=== PATIENT | male | born 1950 | race Caucasian/White ===

== ENCOUNTER → 2016-10-18 | Outpatient (REF) | payer OTHER ==
[2016-10-18 16:45] LABS: CALCIUM LEVEL 8.9 MG/DL (8.8-10.2); CREATININE FOR GFR 1.55 MG/DL (0.70-1.30); GLOMERULAR FILTRATION RATE 48.1 (>49); POTASSIUM SERUM 3.8 MEQ/L (3.5-5.1)
== END ==
LOC: M LABDRAW1 15:45
PROVIDERS: ATTEND Family Medicine
DX: I10 Essential (primary) hypertension (principal)

== ENCOUNTER → 2016-12-16 | Outpatient (REF) | payer OTHER | LOC: M LAB REF 12:05 | PROVIDERS: ATTEND Nurse Practitioner Family | DX: D51.9 Vitamin B12 deficiency anemia, unspecified (principal) ==

== ENCOUNTER 2017-11-18 08:39 | Day surgery (SDC) | payer OTHER ==
[2017-11-18] MEDS ORDERED: PROPOFOL 200 MG/20 ML VIAL As Ordered ×2 (09:52)
[2017-11-18] MEDS ORDERED: LIDOCAINE 2% INJ 100 MG/5 ML SDV (FOR ANES.) As Ordered (09:53)
== END 2017-11-18 10:59 | disposition home or self-care (01) ==
LOC: M OPP 08:39
DX: Z12.11 Encounter for screening for malignant neoplasm of colon (principal); K64.0 First degree hemorrhoids; K57.30 Diverticulosis of large intestine without perforation or abscess without bleeding; R12 Heartburn; K22.8 Other specified diseases of esophagus; K21.0 Gastro-esophageal reflux disease with esophagitis; K44.9 Diaphragmatic hernia without obstruction or gangrene; I10 Essential (primary) hypertension; E78.5 Hyperlipidemia, unspecified; F17.220 Nicotine dependence, chewing tobacco, uncomplicated; Z79.899 Other long term (current) drug therapy
CPT/HCPCS: G0121

== ENCOUNTER → 2020-01-22 | Outpatient (REF) | payer OTHER ==
[~2020-01-22] MED LIST: AMLO1TAB24 PO; PRAV20TA2 PO; TERA5CAP3 PO
== END ==
LOC: M LAB REF 16:11
PROVIDERS: ATTEND Nurse Practitioner Family
DX: D51.9 Vitamin B12 deficiency anemia, unspecified (principal)

== ENCOUNTER → 2020-10-02 | Outpatient (REF) | payer OTHER | LOC: M LAB REF 16:06 | PROVIDERS: ATTEND Internal Medicine | DX: E87.6 Hypokalemia (principal) ==

== ENCOUNTER 2020-11-19 11:58 | Emergency (ER) | payer MEDICARE, OTHER ==
[~2020-11-19] VITALS: Ht 182.9 cm; Wt 103.9 kg
[2020-11-19] MEDS ORDERED: OMEP-218 (12:12)
[2020-11-19] MEDS ORDERED: amLODIPine 5 MG TAB PO ONE (13:10)
--- NOTE | 2020-11-19 13:36 | REP ---
INDICATION: hx aneurysm c/o increased freq carter COMPARISON: 07/30/2012 TECHNIQUE: Axial noncontrast images from the skull base to the vertex with coronal reformations. This CT examination was performed using the following dose reduction techniques: Automated exposure control, adjustment of mA and/or kv according to the patient's size, and use of iterative reconstruction technique. FINDINGS: The ventricles, sulci, and cisterns are normal in position and appearance. Jung-white differentiation is maintained. No acute intracranial hemorrhage, mass/mass effect, pathology or trauma/injury. No evidence for acute infarction. No extra-axial fluid collection. Calvarium is intact. Paranasal sinuses and mastoid air cells are clear. IMPRESSION: Normal noncontrast head CT. No evidence for acute intracranial pathology or trauma/injury. <Electronically signed by Jose Lovelace > 11/19/20 [id number]
[2020-11-19] MEDS ORDERED: ISOVUE-370 76% 100ML VIAL As Ordered ONE (13:46)
--- NOTE | 2020-11-19 14:12 | REP ---
INDICATION: carter increased hx aneurysm. COMPARISON: None. TECHNIQUE: CT contrast dose: 100 ml of intravenous Isovue 370. Axial contrast-enhanced images were obtained from the skull base to the vertex with coronal reformations using 100 cc Isovue 370 intravenous contrast material. Maximal intensity projection and multiplanar re-formation images along with 3-D rendered imaging of the arterial vasculature. FINDINGS: The [id number] and visualized vertebrobasilar system appear relatively intact and normal although absence/hyperplasia of the right posterior communicating artery cannot be excluded. Vasculature to the bilateral hemispheres appear symmetric. No obvious arteriovenous malformation or aneurysm detected. Remainder of the examination appears essentially normal. No significant atherosclerotic changes noted. 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 Otherwise normal CT angiography through the [id number] and bilateral cerebral hemispheres. <Electronically signed by Jose Lovelace > 11/19/20 [id number]
[2020-11-19 14:47] VITALS: BP 144/88
== END 2020-11-19 14:52 | disposition home or self-care (01) ==
LOC: M ED 11:58
DX: R51.9 Headache, unspecified (principal); H93.13 Tinnitus, bilateral; I67.1 Cerebral aneurysm, nonruptured; I10 Essential (primary) hypertension; E78.5 Hyperlipidemia, unspecified; K21.9 Gastro-esophageal reflux disease without esophagitis; F41.9 Anxiety disorder, unspecified; Z79.899 Other long term (current) drug therapy
CPT/HCPCS: 36415; 70450; 70496; 80047; 99284; Q9967

== ENCOUNTER → 2020-11-27 | Outpatient (REF) | payer MEDICARE, OTHER ==
[~2020-11-27] MED LIST changes: +OMEP-218
[2020-11-27 12:36] LABS: APPEARANCE, URINE CLOUDY (CLEAR); BACTERIA, URINE AUTO NEGATIVE (NEGATIVE); BILIRUBIN, URINE AUTO NEGATIVE (NEGATIVE); BLOOD, URINE BLOOD NEGATIVE (NEGATIVE); COLOR, URINE AMBER (YELLOW); GLUCOSE, URINE (UA) AUTO NEGATIVE (NEGATIVE); KETONE, URINE AUTO NEGATIVE (NEGATIVE); LEUKOCYTE ESTERASE, URINE AUTO NEGATIVE (NEGATIVE); MUCUS, URINE SMALL (NEGATIVE); NITRITE, URINE AUTO NEGATIVE (NEGATIVE); PROTEIN, URINE AUTO NEGATIVE (NEGATIVE); RBC, URINE AUTO 2 /HPF (0-3); SPECIFIC GRAVITY URINE AUTO 1.019 (1.002-1.035); SQUAMOUS EPITHELIAL CELL UR AU 0 /HPF (0-6); WBC, URINE AUTO 0 /HPF (0-3)
[2020-11-27 12:38] LABS: INR 1.03; PROTHROMBIN TIME 13.7 SECONDS (12.5-14.3)
== END ==
LOC: M LAB REF 11:37
PROVIDERS: ATTEND Internal Medicine
DX: Z01.818 Encounter for other preprocedural examination (principal); R55 Syncope and collapse

== ENCOUNTER → 2020-11-27 | Outpatient (CLI) | payer MEDICARE, OTHER ==
--- NOTE | 2020-11-27 09:42 | REP ---
INDICATION: PREOP TESTING. COMPARISON: Chest CT dated 07/30/2012. TECHNIQUE: Upright PA and lateral chest. FINDINGS: For there is a focal masslike density in the right paratracheal area medially in the right upper lobe. No masses identified in this location on the comparison CT. This could represent a mediastinal mass, possibly enlarged thyroid. Follow-up CT is recommended for further evaluation. The lung lazcano are clear otherwise. The cardiac size is normal. The radha, mediastinum, and skeletal structures are unremarkable except for grade 2 compression deformities of the approximate a T7 and T9 vertebral bodies. IMPRESSION: Question right paratracheal mass medially in the right upper lobe. Compression deformities of the approximate T7 and T9 vertebral bodies. Follow-up chest CT and thoracic spine CT might be considered for further evaluation. <Electronically signed by Feng Quintanilla > 11/27/20 [id number]
== END ==
LOC: M WUC 08:51
PROVIDERS: ATTEND Neurological Surgery
DX: Z01.818 Encounter for other preprocedural examination (principal); R55 Syncope and collapse; Z79.899 Other long term (current) drug therapy

== ENCOUNTER → 2022-08-30 | Outpatient (REF) | payer OTHER, MEDICARE ==
[~2022-08-30] MED LIST changes: +OMEP-173; -OMEP-218
== END ==
LOC: M LAB REF 16:17
PROVIDERS: ATTEND Internal Medicine
DX: M25.562 Pain in left knee (principal)

== ENCOUNTER → 2024-05-25 | Outpatient (CLI) | payer OTHER, MEDICARE | LOC: M RAD 10:29 | PROVIDERS: ATTEND Internal Medicine | DX: N28.9 Disorder of kidney and ureter, unspecified (principal); N40.0 Benign prostatic hyperplasia without lower urinary tract symptoms ==

== ENCOUNTER → 2024-12-05 | Outpatient (CLI) | payer OTHER, MEDICARE | LOC: M WUC 11:14 | PROVIDERS: ATTEND Internal Medicine | DX: M19.011 Primary osteoarthritis, right shoulder (principal); M25.511 Pain in right shoulder ==

== ENCOUNTER 2025-04-15 11:27 | Observation (INO) | payer OTHER, MEDICARE ==
[~2025-04-15] VITALS: Ht 182.9 cm; Wt 101.6 kg
[~2025-04-15 11:27] MED LIST changes: -OMEP-173; +OMEP-173 PO; -PRAV20TA2 PO; +PRAV20TA78 PO
[2025-04-15] MEDS ORDERED: ISOVUE-370 76% 100 ML VIAL As Ordered ONE (11:56)
[2025-04-15 12:16] LABS: BASO # 0.0 10^3/uL (0.0-0.2); BASO % 0.4 % (0.0-1.0); EOS # 0.3 10^3/uL (0.0-0.5); EOS % 3.1 % (0.0-3.0); LYMPH # 1.9 10^3/uL (1.5-5.0); LYMPH % 23.6 % (24.0-44.0); MONO # 0.6 10^3/uL (0.0-0.8); MONO % 7.9 % (2.0-8.0); NEUTROPHILS # 5.3 10^3/uL (1.5-8.5); NEUTROPHILS % 64.8 % (36.0-66.0); PLATELET COUNT, AUTOMATED 144 10^3/uL (150-450)
[2025-04-15 12:34] LABS: INR 0.99
[2025-04-15 13:43] LABS: ALT/SGPT 22.0 U/L (7.0-40); AST/SGOT 40.0 U/L (<34); CALCIUM LEVEL 8.7 MG/DL (8.3-10.6); CARBON DIOXIDE LEVEL 25.0 MMOL/L (20-31); CHLORIDE LEVEL 104.0 MMOL/L (98-107); CREATININE FOR GFR 1.59 MG/DL (0.70-1.30); GLOMERULAR FILTRATION RATE 45.6 (>42); MAGNESIUM LEVEL 1.9 MG/DL (1.8-2.4); POTASSIUM SERUM 3.7 MMOL/L (3.5-5.1); SODIUM LEVEL 142.0 MMOL/L (136-145)
[2025-04-15 13:45] LABS: FREE T4 1.23 NG/DL (0.89-1.76)
[2025-04-15] MEDS: NS (Normal Saline) 0.9% 1,000 ML IV SCH (13:58)
[2025-04-15] MEDS: NS 500 ML IV ONE (13:59)
[2025-04-15] MEDS ORDERED: POTA10CA70 PO (14:24)
[2025-04-15] MEDS ORDERED: HOME MED LIST COMPLETE! XX SCH (14:25)
[2025-04-15] MEDS: ASPIRIN 81 MG CHEWABLE TABLET PO ONE (16:30)
[2025-04-15] MEDS: ATORVASTATIN 20 MG TAB PO ONE (16:30)
[2025-04-15] MEDS: MULTIVITAMINS/MINERALS THERAP 1 TAB PO SCH (16:30)
[2025-04-15] MEDS: FOLIC ACID 1 MG TAB PO SCH (16:30)
[2025-04-15 17:18] LABS: MAGNESIUM LEVEL 1.9 MG/DL (1.8-2.4)
[2025-04-15] MEDS: CLOPIDOGREL 75 MG TAB PO SCH (19:51)
[2025-04-15] MEDS: ATORVASTATIN 20 MG TAB PO SCH (19:51)
[2025-04-15] MEDS: THIAMINE 100 MG TAB PO SCH (19:52)
[2025-04-15] MEDS: POTASSIUM CHLORIDE 10MEQ SR TABLET PO SCH (19:52)
[2025-04-15] MEDS: OMEPRAZOLE 20MG CAP PO SCH (19:52)
[2025-04-15] MEDS ORDERED: TERAZOSIN 5MG CAPSULE PO SCH (21:00)
[2025-04-16 07:51] LABS: PLATELET COUNT, AUTOMATED 133 10^3/uL (150-450)
[2025-04-16 08:06] LABS: ESTIMATED AVERAGE GLUCOSE 114.0 MG/DL (60-110)
[2025-04-16 08:18] LABS: CALCIUM LEVEL 8.4 MG/DL (8.3-10.6); CARBON DIOXIDE LEVEL 26.0 MMOL/L (20-31); CHLORIDE LEVEL 109.0 MMOL/L (98-107); CHOLESTEROL LEVEL 155.0 MG/DL (<200); CHOLESTEROL RISK RATIO 2.92 (<5); CREATININE FOR GFR 1.23 MG/DL (0.70-1.30); GLOMERULAR FILTRATION RATE 62.0 (>42); LDL CHOLESTEROL 82.8 MG/DL (<100); NON-HDL-C 102.0 MG/DL; POTASSIUM SERUM 3.5 MMOL/L (3.5-5.1); SODIUM LEVEL 147.0 MMOL/L (136-145); TRIGLYCERIDES LEVEL 96.0 MG/DL (<150)
[2025-04-16] MEDS: ENOXAPARIN 40 MG/0.4 ML SYRINGE (J1650 PER 10MG) SC SCH (08:49)
[2025-04-16] MEDS: ASPIRIN 81 MG CHEWABLE TABLET PO SCH (08:49)
[2025-04-16] MEDS: LR 1,000 ML IV ONE (14:52)
[2025-04-16 17:16] LABS: CALCIUM LEVEL 8.7 MG/DL (8.3-10.6); CARBON DIOXIDE LEVEL 25.0 MMOL/L (20-31); CHLORIDE LEVEL 108.0 MMOL/L (98-107); CREATININE FOR GFR 1.29 MG/DL (0.70-1.30); GLOMERULAR FILTRATION RATE 58.6 (>42); POTASSIUM SERUM 3.6 MMOL/L (3.5-5.1); SODIUM LEVEL 142.0 MMOL/L (136-145)
[2025-04-16] MEDS ORDERED: PRAVASTATIN 20 MG TAB PO SCH (21:00)
[2025-04-16 21:17] VITALS: BP 165/90; TEMP 97.5; O2SAT 97
[2025-04-17 00:05] VITALS: BP 140/81; TEMP 97.2; O2SAT 96
[2025-04-17 04:02] VITALS: BP 133/82; TEMP 97.5; O2SAT 93
[2025-04-17 08:00] VITALS: BP 130/78; TEMP 96.9; O2SAT 97
[2025-04-17 12:00] VITALS: BP 147/81; TEMP 97.1; O2SAT 97
[2025-04-17] MEDS ORDERED: CLOP75TA2 PO (12:20)
[2025-04-17] MEDS ORDERED: ATOR1TAB21 PO (12:20)
[2025-04-17] MEDS ORDERED: ASPI81CH8 PO (12:20)
[2025-04-17] MEDS ORDERED: THERTAB19 PO (12:20)
[2025-04-17] MEDS ORDERED: FOLI1TAB11 PO (12:20)
== END 2025-04-17 16:22 | disposition home or self-care (01) ==
LOC: M ED 11:27 → M ED INP 11:28 → M PCU 04-16 21:03
PROVIDERS: ADMIT Internal Medicine; ATTEND Internal Medicine
DX: I63.81 Other cerebral infarction due to occlusion or stenosis of small artery (principal); R55 Syncope and collapse; N40.0 Benign prostatic hyperplasia without lower urinary tract symptoms; I12.9 Hypertensive chronic kidney disease with stage 1 through stage 4 chronic kidney disease, or unspecified chronic kidney disease; N18.30 Chronic kidney disease, stage 3 unspecified; K21.9 Gastro-esophageal reflux disease without esophagitis; E87.6 Hypokalemia; F10.20 Alcohol dependence, uncomplicated; E78.5 Hyperlipidemia, unspecified; Z79.82 Long term (current) use of aspirin; Z79.899 Other long term (current) drug therapy
CPT/HCPCS: 36415; 70450; 70496; 70498; 70551; 71045; 80047; 80048; 80053; 80061; 83036; 83735; 83880; 84439; 84443; 84484; 85025; 85027; 85610; 85730; 93005; 93041; 93306; 94760; 96361; 96372; 96374; 96376; 97161; 99285; J1650; Q9967

== ENCOUNTER → 2025-04-17 | Outpatient (CLI) | payer OTHER, MEDICARE ==
[~2025-04-17] MED LIST changes: +ASPI81CH8 PO; +ATOR1TAB21 PO; +CLOP75TA2 PO; +FOLI1TAB11 PO; +POTA10CA70 PO; +THERTAB19 PO
== END ==
LOC: M EKG 16:47
PROVIDERS: ATTEND Internal Medicine
DX: I63.9 Cerebral infarction, unspecified (principal)

== ENCOUNTER → 2025-06-06 | Outpatient (REF) | payer MEDICARE, OTHER ==
[2025-06-07 10:58] LABS: DRVV SCREEN 30.1 SECONDS
[2025-06-07 10:59] LABS: PTT LUPUS TYPE ANTICOAG SCREEN 0.78 (0-1.20)
[2025-06-07 21:52] LABS: CARDIOLIPIN IGA ANTIBODY < 2.0 APL-U/mL (<20.0); CARDIOLIPIN IGG ANTIBODY < 2.0 GPL-U/mL (<20.0); CARDIOLIPIN IGM ANTIBODY 2.7 MPL-U/mL (<20.0)
== END ==
LOC: M LAB REF 12:09
PROVIDERS: ATTEND Internal Medicine
DX: Z86.73 Personal history of transient ischemic attack (TIA), and cerebral infarction without residual deficits (principal); G62.1 Alcoholic polyneuropathy

== ENCOUNTER → 2025-06-25 | Outpatient (CLI) | payer OTHER | LOC: M RAD 09:13 | PROVIDERS: ATTEND Internal Medicine | DX: D69.6 Thrombocytopenia, unspecified (principal); F10.90 Alcohol use, unspecified, uncomplicated; R93.2 Abnormal findings on diagnostic imaging of liver and biliary tract; R93.3 Abnormal findings on diagnostic imaging of other parts of digestive tract ==